=== PATIENT | female | born 1990 | race Caucasian/White ===

== ENCOUNTER 2023-11-21 17:51 | Emergency (ER) | payer MEDICAID ==
[~2023-11-21] VITALS: Ht 162.6 cm; Wt 64.0 kg
[2023-11-21 18:13] VITALS: BP 100/58; PULSE 96; RESP 12; TEMP 98.4; O2SAT 100
[2023-11-21] MEDS ORDERED: IBUPROFEN 600MG TABLET PO STA (18:58)
[2023-11-22] MEDS ORDERED: IBUPROFEN 600MG TABLET PO NR (01:30)
[2023-11-22] MEDS ORDERED: ONDA4TAB50 MT (12:05)
[2023-11-22] MEDS ORDERED: CEPH500T MT (12:05)
[2023-11-22] MEDS ORDERED: IBUP-2029 MT (12:05)
== END 2023-11-21 20:40 ==
LOC: ER 17:51
DX: J06.9 Acute upper respiratory infection, unspecified (principal)
CPT/HCPCS: 99282

== ENCOUNTER 2023-11-22 09:25 | Emergency (ER) | payer MEDICAID ==
[~2023-11-22] VITALS: Ht 152.4 cm; Wt 56.0 kg
[2023-11-22 09:34] VITALS: O2SAT 98
[2023-11-22 10:18] LABS: BASOPHILS % 0.2 % (0.0-2.0); HEMATOCRIT. 35.2 % (36.0-48.0); HEMOGLOBIN. 11.6 g/dL (12.0-16.0); MEAN CORPUSCULAR HEMOGLOBIN 27.7 pg (28.0-32.0); MEAN CORPUSCULAR VOLUME 83.9 fL (81.0-99.0); MEAN PLATELET VOLUME 9.6 fl (7.4-10.4); MONOCYTES % 8.8 % (2.0-8.0); PLATELET 185 x1000/uL (130-400); RED BLOOD CELL COUNT 4.19 mill/uL (4.2-5.4); WHITE BLOOD COUNT 8.7 x1000/uL (4.5-11.0)
[2023-11-22 10:24] LABS: CHLORIDE 101 mEq/L (98-107); POTASSIUM 4.4 mEq/L (3.5-5.1); SODIUM 131 mEq/L (136-145)
[2023-11-22 10:25] LABS: CALCIUM 8.9 mg/dL (8.7-10.4); CARBON DIOXIDE 21 mEq/L (21-32)
[2023-11-22 10:26] LABS: HCG SCREEN NEGATIVE
[2023-11-22 10:30] LABS: CREATININE 1.3 mg/dL (0.6-1.0); GLUCOSE 167 mg/dL (70-105); UREA NITROGEN BLOOD 16 mg/dL (9-23)
[2023-11-22 10:31] LABS: ALANINE AMINOTRANSFERASE 19 IU/L (10-49)
[2023-11-22 10:32] LABS: ALBUMIN 4.5 g/dL (3.2-4.8); ASPARTATE AMINOTRANSFERASE 18 IU/L (<34); BILIRUBIN DIRECT 0.2 mg/dL (<=3.0); BILIRUBIN TOTAL 0.5 mg/dL (0.1-1.0); PROTEIN TOTAL 7.2 g/dL (6.0-8.3)
[2023-11-22 10:33] LABS: ETHANOL BLOOD < 10 mg/dL (<10)
[2023-11-22] MEDS: IBUPROFEN 600MG TABLET PO STA (11:25)
[2023-11-22] MEDS: ONDANSETRON 4MG ODT PO STA (11:25)
[2023-11-22 11:26] LABS: CLARITY URINE TURBID (CLEAR); COLOR URINE YELLOW (YELLOW); GLUCOSE URINE 1+ (NEGATIVE); KETONES URINE TRACE (NEGATIVE); LEUKOCYTE ESTERASE URINE 3+ (NEGATIVE); NITRITE URINE NEGATIVE (NEGATIVE); OCCULT BLOOD URINE 3+ (NEGATIVE); PH URINE 6.5 (4.5-8.0); PROTEIN URINE 2+ (NEGATIVE); SPECIFIC GRAVITY URINE 1.022 (1.005-1.030)
[2023-11-22 11:42] LABS: BACTERIA URINE 2+; SQUAMOUS EPITHELIAL CELL URINE NONE SEEN /lpf (RARE/1+); WBC URINE TNTC /hpf (0-2)
[2023-11-22 11:45] LABS: RBC URINE NONE SEEN /hpf (0-2)
[2023-11-22] MEDS ORDERED: ONDA4TAB50 MT (12:05)
[2023-11-22] MEDS ORDERED: IBUP-2029 MT (12:05)
[2023-11-22] MEDS ORDERED: CEPH500T MT (12:05)
[2023-11-22 12:11] LABS: *AMPHETAMINES SCREEN URINE NEGATIVE (NEGATIVE); *BARBITURATES SCREEN URINE NEGATIVE (NEGATIVE); *BENZODIAZEPINES SCREEN URINE NEGATIVE (NEGATIVE); *COCAINE SCREEN URINE NEGATIVE (NEGATIVE); CANNABINOID URINE SCREEN NEGATIVE (NEGATIVE); ECSTASY MDMA SCREEN URINE NEGATIVE (NEGATIVE); METHADONE URINE SCREEN NEGATIVE (NEGATIVE); OPIATES URINE SCREEN NEGATIVE (NEGATIVE); PHENCYCLIDINE URINE SCREEN NEGATIVE (NEGATIVE)
[2023-11-22 13:47] VITALS: BP 128/87; PULSE 99; RESP 18; TEMP 36.89184; O2SAT 98
== END 2023-11-22 13:47 | disposition home or self-care (01) ==
LOC: ER 09:25
DX: N30.90 Cystitis, unspecified without hematuria (principal)
CPT/HCPCS: 80076; 80305; 80048; 81003; 81025; 80320; 84703; 83690; 85025; 87086; 87186; 87077; 36415; 99283; Q0162; G0480